=== PATIENT | female | born 1940 | race Caucasian/White ===

== ENCOUNTER 2019-03-31 06:48 | Emergency (ER) | payer MEDICARE ==
[~2019-03-31] VITALS: Ht 167.6 cm; Wt 92.0 kg
[2019-03-31 06:50] VITALS: BP 161/65
[2019-03-31] MEDS ORDERED: triamcinolone acetonide 40mg/ml inj IM ONE (07:25)
== END 2019-03-31 08:14 | disposition home or self-care (01) ==
LOC: ER 06:50
DX: L23.9 Allergic contact dermatitis, unspecified cause (principal); I48.91 Unspecified atrial fibrillation; E78.00 Pure hypercholesterolemia, unspecified; I10 Essential (primary) hypertension; Z90.710 Acquired absence of both cervix and uterus; Z88.1 Allergy status to other antibiotic agents
CPT/HCPCS: 96372; 99283; J3301

== ENCOUNTER 2020-06-29 05:57 | Emergency (ER) | payer MEDICARE ==
[~2020-06-29] VITALS: Ht 165.1 cm; Wt 86.6 kg
[2020-06-29 06:02] VITALS: BP 138/64
[2020-06-29] MEDS ORDERED: triamcinolone acetonide 40mg/ml inj IM ONE (06:25)
== END 2020-06-29 07:18 | disposition home or self-care (01) ==
LOC: ER 05:57
DX: T78.40XA Allergy, unspecified, initial encounter (principal); K13.0 Diseases of lips; I48.91 Unspecified atrial fibrillation; E78.00 Pure hypercholesterolemia, unspecified; I10 Essential (primary) hypertension; Z90.710 Acquired absence of both cervix and uterus; Z88.1 Allergy status to other antibiotic agents; X58.XXXA Exposure to other specified factors, initial encounter
CPT/HCPCS: 96372; 99283; J3301

== ENCOUNTER 2021-05-05 15:23 | Emergency (ER) | payer MEDICARE ==
[~2021-05-05] VITALS: Ht 167.6 cm; Wt 89.1 kg
[2021-05-05 15:29] VITALS: BP 135/79
[2021-05-05] MEDS ORDERED: triamcinolone acetonide 40mg/ml inj IM ONE (18:00)
== END 2021-05-05 18:10 | disposition home or self-care (01) ==
LOC: ER 15:25
DX: L50.9 Urticaria, unspecified (principal); E78.00 Pure hypercholesterolemia, unspecified; I10 Essential (primary) hypertension; Z88.1 Allergy status to other antibiotic agents; Z79.899 Other long term (current) drug therapy
CPT/HCPCS: 93005; 96372; 99283; J3301